=== PATIENT | female | born 1940 | race Caucasian/White ===

== ENCOUNTER → 2017-08-22 | Outpatient (CLI) | payer MEDICARE | END | disposition home or self-care (01) | LOC: ROC 13:24 | PROVIDERS: ATTEND Radiology Radiation Oncology | DX: G50.0 Trigeminal neuralgia (principal); K21.9 Gastro-esophageal reflux disease without esophagitis; Z87.891 Personal history of nicotine dependence | CPT/HCPCS: 99204; G0463 ==

== ENCOUNTER → 2017-09-12 | Outpatient (CLI) | payer MEDICARE ==
[~2017-09-12] MED LIST: GADOBUTROL 7.5 MMOL/7.5 ML PFS ONE
== END | disposition home or self-care (01) ==
LOC: CFH 11:47
PROVIDERS: ATTEND Radiology Radiation Oncology
DX: G50.0 Trigeminal neuralgia (principal)
CPT/HCPCS: 70553; A9585

== ENCOUNTER → 2018-04-17 | Outpatient (CLI) | payer MEDICARE | END | disposition home or self-care (01) | LOC: ROC 08:09 | PROVIDERS: ATTEND Radiology Radiation Oncology | DX: Z09 Encounter for follow-up examination after completed treatment for conditions other than malignant neoplasm (principal); G50.0 Trigeminal neuralgia | CPT/HCPCS: G0463 ==

== ENCOUNTER 2019-09-04 08:22 | Outpatient (CLI) | payer MEDICARE | END 2019-09-04 23:59 | disposition home or self-care (01) | LOC: ROC 08:22 | PROVIDERS: ATTEND Radiology Radiation Oncology | DX: G50.0 Trigeminal neuralgia (principal) | CPT/HCPCS: G0463 ==